=== PATIENT | female | born 1940 | race Caucasian/White ===

== ENCOUNTER → 2016-10-29 | Day surgery (SDC) | payer OTHER ==
[~2016-10-29] MED LIST: ACETAMINOPHEN 1000 MG/100 ML VIAL IV ONE; LACTATED RINGER'S 1000 ML INJ 1,000 ML ONE; LIDOCAINE 1%/EPINEPHrine 1:100,000 SOLN 50 ML VIAL ONE; MIDAZOLAM HCL 2 MG/2 ML VIAL ONE; ONDANSETRON HCL 4 MG/2 ML VIAL IV PUSH ONE; PROPOFOL 200 MG/20 ML AMP IV ONE; SODIUM CHLOR 0.9% 250 ML BAG IV ONE; VANCOMYCIN 500 MG VIAL ONE
--- NOTE | 2016-10-29 13:36 | TN ---
cc: CHEKO WATSON M.D. DATE OF SURGERY 10/29/2016 PREOPERATIVE DIAGNOSIS Fat atrophy of the face POSTOPERATIVE DIAGNOSIS Fat atrophy of the face PROCEDURE Fat injections to the face. SURGEON Cheko Watson MD ANESTHESIA LMA general ESTIMATED BLOOD LOSS Minimal COMPLICATIONS None TOTAL HARVEST FROM THE LOWER ABDOMEN 300 TOTAL SUITABLE FOR INJECTION 90 divided 45 per side including the latter-day cheek, nasolabial fold, marionette lines and chin area. PROCEDURE She was properly consented, marked, properly anesthetized. The skin was sterilized with Microcyn and sterile draping applied. Utilizing the micro hole harvesting cannula, I harvested a total 300 cc from the lower abdomen through an umbilical puncture wound as well as suprapubic incision. After harvesting 300 cc, it was transferred to a fine strainer and it was washed out of oils and blood and put down into fine syringes. This was actually with fine cannulas and we started delivering the fat into the areas above-mentioned. Punctures were done utilizing an 11-blade in a hair-line as well as the ear lobule. Those all were closure utilizing 5-0 chromic suture. A total of 90 cc of fat was applied again in the latter-day area, upper and lower cheek area, jaw line and marionette line, nasolabial fold and chin area. Overall, the patient tolerated the procedure well. Again, all the puncture wounds were closed with 5-0 chromic suture and Steri-Strips were applied. She was awakened and extubated in the operating room, transferred back to the postanesthesia care unit in stable condition. There were no complications appreciated and the patient tolerated the procedure well. MD TRACY Brantley/KEN /1:13 PM /1:28 PM
== END | disposition home or self-care (01) ==
LOC: ESDC 10:44
PROVIDERS: ATTEND Plastic Surgery
DX: Z41.1 Encounter for cosmetic surgery (principal)
CPT/HCPCS: 00300; 11954; J0131; J2250; J2405; J3010; J3370; J7050; J7120